=== PATIENT | male | born 1940 | race Hispanic/Latino ===

== ENCOUNTER 2020-04-28 08:19 | Emergency (ER) | payer SELFPAY ==
[2020-04-28] MEDS ORDERED: SODIUM CHLORIDE 0.9% 1000ML 1,000 ML IV ONE (09:53)
== END 2020-04-28 08:47 | disposition left against medical advice (07) ==
LOC: EDH 08:19
DX: R13.10 Dysphagia, unspecified (principal); I10 Essential (primary) hypertension; I25.10 Atherosclerotic heart disease of native coronary artery without angina pectoris; E03.9 Hypothyroidism, unspecified; I25.2 Old myocardial infarction; Z53.21 Procedure and treatment not carried out due to patient leaving prior to being seen by health care provider
CPT/HCPCS: 99281; J7030

== ENCOUNTER 2020-04-28 08:58 | Day surgery (SDC) | payer MEDICARE ==
[~2020-04-28] VITALS: Ht 167.6 cm; Wt 66.5 kg
[2020-04-28] VITALS (7 sets, daily range): BP systolic 99–157; BP diastolic 52–96
[2020-04-28] MEDS ORDERED: CEFAZOLIN SODIUM 1 GM VIAL ONE (09:56)
[2020-04-28] MEDS ORDERED: PROPOFOL 10 MG/ML 20ML VIAL IV ONE ×2 (10:09→10:14)
== END 2020-04-28 12:35 | disposition home or self-care (01) ==
LOC: ENDO 08:58 → DAH 08:58 → ENDO 12:35
PROVIDERS: ATTEND Internal Medicine Gastroenterology
DX: R13.12 Dysphagia, oropharyngeal phase (principal); Z20.822 Contact with and (suspected) exposure to COVID-19; R63.3 Feeding difficulties; I48.91 Unspecified atrial fibrillation; J43.9 Emphysema, unspecified; I10 Essential (primary) hypertension; K59.04 Chronic idiopathic constipation; I25.10 Atherosclerotic heart disease of native coronary artery without angina pectoris; I25.2 Old myocardial infarction; E89.0 Postprocedural hypothyroidism; Z98.890 Other specified postprocedural states; Z79.899 Other long term (current) drug therapy; Z86.010 Personal history of colon polyps; Z90.49 Acquired absence of other specified parts of digestive tract; Z85.828 Personal history of other malignant neoplasm of skin; Z72.89 Other problems related to lifestyle; Z79.01 Long term (current) use of anticoagulants; Z98.49 Cataract extraction status, unspecified eye; Z87.19 Personal history of other diseases of the digestive system
CPT/HCPCS: 43246; 87426; 93005; A4215; A4221; A4222; A4223; A4606; A4620; A4663; J0690; J2704 ×2